=== PATIENT | male | born 1995 | race Caucasian/White ===

== ENCOUNTER 2018-03-28 01:09 | Emergency (ER) | payer SELFPAY ==
[~2018-03-28] VITALS: Ht 165.1 cm; Wt 97.5 kg
[2018-03-28 01:18] VITALS: BP 125/86
--- NOTE | 2018-03-28 01:21 | NUR ---
PT TRIAGED AND SENT TO [facility] EDMD AWARE OF PT STATUS
--- NOTE | 2018-03-28 01:47 | NUR ---
PT AMBULATED TO BED 1
--- NOTE | 2018-03-28 01:50 | NUR ---
PT PRESENTED ER WITH C/O BLEEDING LACERATION ON THE FINGER. PT STATED HE CUT HIMSELF ON GLASS. THE BLEEDING WAS PERSISTANT AND HE COULD NOT STOP THE BLEEDING. NO BLEEDING WHILE IN ER. NKA NO PREVIOUS MEDICAL HX. SKIN IS PINK/WARM/DRY; AAOX4 WITH EVEN AND STEADY GAIT; VSS; PATIENT POSITIONED FOR COMFORT; HOB ELEVATED; BEDRAILS UP X2; BED DOWN. ER MD MADE AWARE OF PT STATUS. PT HAS NO PAIN 0/10.
--- NOTE | 2018-03-28 02:54 | NUR ---
WOUND CLEANED WITH SALINE
[2018-03-28] MEDS ORDERED: BACITRACIN OINT 500 UNITS/GM PKT TP ONE ×2 (03:03→03:30)
--- NOTE | 2018-03-28 03:05 | NUR ---
WOUND OVER R FINGER WRAPPED WITH NON ADHERENT DRESSING AND COFLEX ROLL. +CSM DISTAL TO INJURY.
--- NOTE | 2018-03-28 03:18 | NUR ---
pt sitting up in bed, vitals stable
[2018-03-28 03:57] VITALS: BP 125/86
--- NOTE | 2018-03-28 03:57 | NUR ---
Patient discharged with v/s stable. Written and verbal after care instructions given and explained. Patient alert, oriented and verbalized understanding of instructions. Ambulatory with steady gait. All questions addressed prior to discharge. ID band removed. Patient advised to follow up with PMD. Rx of bacitracin was given. Patient educated on indication of medication including possible reaction and side effects. Opportunity to ask questions provided and answered.
== END 2018-03-28 03:57 | disposition home or self-care (01) ==
LOC: MED 01:09
DX: S61.212A Laceration without foreign body of right middle finger without damage to nail, initial encounter (principal); W25.XXXA Contact with sharp glass, initial encounter; Y93.89 Activity, other specified; Y92.89 Other specified places as the place of occurrence of the external cause; Y99.8 Other external cause status
CPT/HCPCS: 99283